=== PATIENT | female | born 1970 | race Caucasian/White ===

== ENCOUNTER 2016-12-10 11:48 | Emergency (ER) | payer OTHER ==
[2016-12-10] MEDS ORDERED: Sodium Chloride 0.9% 1,000 ML IV ONE (12:58)
[2016-12-10] MEDS ORDERED: Sodium Chloride 0.9% 1,000 ML ONE (13:13)
[2016-12-10] MEDS ORDERED: Morphine 4 MG/ML VIAL ONE (13:13)
[2016-12-10 13:29] LABS: BASO % 0.5 % (0.0-2.0); EOS % 0.4 % (0.0-4.0); HEMATOCRIT 29.4 % (34.0-47.0); LYMPH % 14.7 % (20.0-40.0); MEAN CELL VOLUME 63.5 fL (81.0-99.0); MEAN PLATELET VOLUME 7.9 fL (7.2-11.7); MONO # 0.4 K/uL (0.0-0.8); MONO % 6.6 % (0.0-10.0); NRBC % 0.2 % (0.0-2.0); RED CELL DISTRIBUTION WIDTH 17.3 % (11.5-14.5); WHITE BLOOD COUNT 6.9 K/uL (4.8-10.8)
[2016-12-10 13:43] LABS: CHLORIDE 104 mmol/L (98-107); SODIUM 140 mmol/L (132-148)
[2016-12-10 13:44] LABS: POTASSIUM 3.9 mmol/L (3.6-5.2)
[2016-12-10 13:45] LABS: GFR AFRICAN-AMERICAN > 60
[2016-12-10 13:46] LABS: ALKALINE PHOSPHATASE 89 U/L (38-126); ALT/SGPT 19 U/L (9-52); AST/SGOT 24 U/L (14-36); BILIRUBIN,TOTAL 0.6 mg/dL (0.2-1.3); BLOOD UREA NITROGEN 7 mg/dL (7-17); CALCIUM 8.9 mg/dl (8.6-10.4); CARBON DIOXIDE 24 mmol/L (22-30); GLUCOSE,RANDOM 95 mg/dL (65-105); TOTAL PROTEIN 7.7 g/dL (6.3-8.3)
--- NOTE | 2016-12-10 14:46 | C.PDOC ---
History Of Present Illness The patient, a 46 y/o female, presents to the ED for evaluation of vaginal bleeding and generalized weakness which began after she underwent a hysteroscopy around 4 days ago. Patient also reports abdominal pain which she describes as "constipation" and suspects her anemia has worsened. She denies fever, chills, back pain, nausea, vomiting. Time Seen by Provider: 12/10/16 12:21 Chief Complaint (Nursing): Female Genitourinary History Per: Patient History/Exam Limitations: no limitations Onset/Duration Of Symptoms: Days (4) Current Symptoms Are (Timing): Still Present Quality Of Discomfort: "Pain" Associated Symptoms: Constipation. denies: Fever, Chills, Nausea, Vomiting, Back Pain Additional History Per: Patient Abnormal Vaginal Bleeding: Yes Past Medical History Reviewed: Historical Data, Nursing Documentation, Vital Signs Vital Signs: Last Vital Signs Temp 98.8 F 12/10/16 15:11 Pulse 72 12/10/16 15:11 Resp 20 12/10/16 15:11 BP 107/71 12/10/16 15:11 Pulse Ox 100 12/10/16 18:42 - Medical History PMH: No Chronic Diseases Surgical History: No Surg Hx Family History: States: Unknown Family Hx - Social History Hx Alcohol Use: No Hx Substance Use: No - Immunization History Hx Tetanus Toxoid Vaccination: No Hx Influenza Vaccination: No Hx Pneumococcal Vaccination: No Review Of Systems Constitutional: Positive for: Weakness. Negative for: Fever, Chills Gastrointestinal: Positive for: Abdominal Pain, Constipation. Negative for: Nausea, Vomiting Genitourinary: Positive for: Vaginal Bleeding Musculoskeletal: Negative for: Back Pain Physical Exam - Physical Exam Appears: Non-toxic, No Acute Distress Skin: Normal Color, Warm, Dry Head: Atraumatic Eye(s): bilateral: Normal Inspection Oral Mucosa: Moist Neck: Supple Chest: Symmetrical Cardiovascular: Rhythm Regular, No Murmur Respiratory: Normal Breath Sounds, No Rales, No Rhonchi, No Wheezing Gastrointestinal/Abdominal: Bowel Sounds (WNL ), Soft, No Tenderness, No Guarding, No Rebound Back: Normal Inspection, No Vertebral Tenderness, No Paraspinal Tenderness Pelvic: Vaginal Bleeding (moderate ) Extremity: Normal ROM, Capillary Refill (less than 2 seconds ) Neurological/Psych: Normal Speech, Normal Cognition Gait: Steady ED Course And Treatment - Laboratory Results Result Diagrams: 12/10/16 13:22 06/26/17 13:22 O2 Sat by Pulse Oximetry: 100 (on RA) Pulse Ox Interpretation: Normal Medical Decision Making Medical Decision Making: Plan: * labs * Morphine IV * Toradol IV * Fleet Enema * IV Fluids * reassess and disposition Progress: labs ordered and reviewed. Patient received Morphine IV, Toradol IV, Fleet Enema MT, and IVF. Patient refuses the morphine and toradol. Patient had bowel movement after enema. Labs results were discussed with the patient and states 8.8 is improved compared to the 8 from last week. On re-exam, the patient reports improvement of symptoms. BP improved. Lungs are CTA, heart is RRR, abdomen is soft, non-tender and patient is tolerating PO well. Ambulatory in the ED with steady gait. Follow up with the medical doctor within 1-2 days. Return if worsened. Disposition - Disposition Referrals: Venkatesh Singh MD [Medical Doctor] - Disposition: HOME/ ROUTINE Disposition Time: 14:43 Condition: FAIR Additional Instructions: Follow up with your OBGYN within 1 week. Return if worsened. Prescriptions: Naproxen [Naprosyn] 500 mg PO BID #20 tab Polyethylene Glycol 3350 [Miralax] 17 gm PO DAILY PRN #100 ml PRN Reason: Constipation Sod Phos,M-B/Na Phos,Di-Ba [Fleet Enema] 133 ml RC ONCE #1 enema Instructions: Constipation (ED), Anemia (GEN) - Clinical Impression Clinical Impression: Anemia, Constipation - PA / MUSIC PROFESSOR / Resident Statement MD/DO has reviewed & agrees with the documentation as recorded. - Scribe Statement The provider has reviewed the documentation as recorded by the Scribe (Lacy Wyman) All medical record entries made by the Scribe were at my direction and personally dictated by me. I have reviewed the chart and agree that the record accurately reflects my personal performance of the history, physical exam, medical decision making, and the department course for this patient. I have also personally directed, reviewed, and agree with the discharge instructions and disposition.
[2016-12-10 15:13] VITALS: BP 107/71; PULSE 72; RESP 20; TEMP 98.8
[2016-12-10 18:37] VITALS: O2SAT 100
== END 2016-12-10 15:11 | disposition home or self-care (01) ==
LOC: C.ER 11:48
DX: D64.9 Anemia, unspecified (principal); K59.00 Constipation, unspecified
CPT/HCPCS: 80053; 83690; 85025; 96361; 96374; 99284; J1885; J7040